=== PATIENT | male | born 1980 | race Asian ===

== ENCOUNTER 2025-03-16 21:05 | Emergency (ER) | payer BC, SELFPAY ==
[2025-03-16 21:05] VITALS: BP 121/80; PULSE 95; RESP 17; TEMP 36.6; O2SAT 99; BMI 26.6
--- NOTE | 2025-03-16 22:00 | RAD_ITS ---
PROCEDURE: RAD/Hand Min 3 Views
[2025-03-16 22:30] LABS: Hematocrit 48.2 % (40-54); Hemoglobin 16.3 g/dL (13.0-16.5); Immature Granulocytes Count 0.050 X10^3/uL (0.0-0.0); Mean Corp Hgb Conc 33.8 g/dL (32-36); Mean Corpuscular Volume 83.8 fL (80-94); Mean Platelet Vol. 10.3 fl (6.2-12.0); NRBC Flagged by Analyzer 0 % (0-5); Platelet Count 296 K/mm3 (150-450); RBC Distribution Width CV 13.1 % (11.6-14.6); RBC Distribution Width SD 39.8 fl (35.1-43.9); Red Blood Count 5.75 M/mm3 (4.6-6.2); White Blood Count 8.1 K/mm3 (4.4-11.0)
[2025-03-16 23:07] LABS: Anion Gap 14 (5-15); BUN 16 mg/dL (4-19); BUN/Creat Ratio 16.2 RATIO (10-20); Calcium,Total 10.5 mg/dL (7.6-11.0); Carbon Dioxide 23.1 mmol/L (21.0-32.0); Chloride 102 mmol/L (98-108); Estimated Creatinine Clearance 79.68 ml/min (50-250); Glucose 125 mg/dL (70-99); Potassium 3.9 mmol/L (3.3-5.1)
--- NOTE | 2025-03-16 23:20 | EX.ED.UPPERE ---
HPI History of Present Illness Chief Complaint: Laceration Narrative Narrative: 44-year-old male who denies significant past medical history, [id number], states he was trying to file a fish at home. Although he is right-hand dominant and he was using his left hand to hold the knife. He states the knife slipped and cut off the tip of his right fourth digit. He is unsure of his last tetanus immunization. He states that the area bled profusely. He denies other injuries. Tetanus Immunization: Unknown PFSH PFSH Medical History no medical history Home Medications ?Medication ?Instructions ?Recorded ?Last Taken ?Type amoxicillin 875 mg-potassium 875 mg PO Q12H #20 TABLETS 03/16/25 Unknown Rx clavulanate 125 mg tablet oxycodone-acetaminophen 5 mg-325 1 tab PO Q6H PRN pain 3 days #12 03/16/25 Unknown Rx mg tablet (Percocet) tabs Allergy/AdvReac Type Severity Reaction Status Date / Time No Known Allergies Allergy Verified 03/16/25 21:06 Family History no significant family his Surgical History no surgical history Social History Smoking Status: Current every day smoker tobacco type: cigarettes ROS ROS ED ROS Narrative Review of systems positive for injury to tip of right fourth digit with knife. Unknown last tetanus immunization. Denies other injuries. Does not take any blood thinners. EXAM Physical Exam Narrative Exam Narrative: Afebrile. Vital signs noted. Nontoxic-appearing. Cardiovascular examination reveals a regular rate and rhythm. Lungs are clear to auscultation bilaterally. Focused examination of the fourth fingertip does show complete avulsion laceration through at least three quarters of the nail on the lateral aspect of the right fourth digit. This is a complete avulsion laceration. He appears uninjured at the DIP joint and more proximally. Const Vital Signs: 03/16/25 21:05 Temperature 97.9 F Temperature Source Oral Pulse Rate 95 Respiratory Rate 17 Blood Pressure 121/80 H Blood Pressure Mean 93 Pulse Ox 99 Oxygen Delivery Method Room Air MDM MDM MDM Narrative Medical decision making narrative: I do not feel differential diagnosis is applicable here. However, there is concern for avulsion of the bone/tuft fracture. RN from triage placed a finger tourniquet. X-rays were obtained of the right fourth digit and interpreted by myself independently. There is concern for tuft fracture. I reviewed the radiology report which confirms my independent interpretation. Normal saline IV was placed and laboratory work drawn in the event that he would have needed transfer. WBC count normal at 8.1 with hemoglobin normal at 16.3, platelet count normal at 296. BMP grossly unremarkable except for glucose 125 with a normal anion gap of 14. Given his open tuft fracture, Ancef 1 g was started intravenously. He was also administered morphine for pain. His turnicot was cut off prior to the 90-minute toño, and direct pressure applied. I did discuss the patient with Dr. Mauricio Wilkinson with orthopedics. Patient is to be discharged with a Vaseline gauze dressing after hemostasis achieved with direct pressure. He was written a prescription for Augmentin 875 mg to take twice a day for the next 10 days and a 3-day prescription for Percocet. I stressed the importance of follow-up with orthopedics, Dr. Wilkinson. Return instructions to the emergency department were reviewed. Disposition is discharged in stable condition. History & Record Review Discussion w/independent historian: Patient Additional record(s) reviewed:: No prior records (No prior ED visit) Lab Data Attestation: I reviewed the patient's lab results. Labs: Laboratory Results - last 24 hr 03/16/25 22:11 WBC 8.1 RBC 5.75 Hgb 16.3 Hct 48.2 MCV 83.8 MCH 28.3 MCHC 33.8 RDW Std Deviation 39.8 RDW Coeff of Emily 13.1 Plt Count 296 MPV 10.3 Immature Gran % (Auto) 0.600 Neut % (Auto) 46.6 L Lymph % (Auto) 34.5 [place] % (Auto) 10.7 H Eos % (Auto) 6.5 H Baso % (Auto) 1.1 H Absolute Neuts (auto) 3.8 Absolute Lymphs (auto) 2.80 Nucleated RBC % 0 Sodium 139 Potassium 3.9 Chloride 102 Carbon Dioxide 23.1 Anion Gap 14 BUN 16 Creatinine 0.97 Estim Creat Clear Calc 79.68 Est GFR (MDRD) Non-Af 97 BUN/Creatinine Ratio 16.2 Glucose 125 H Calcium 10.5 Radiography X-Ray: Read by ED Physician, Read by Radiologist and Fracture Diagnostic Testing: Clinical Impression(s) from Imaging Studies Hand X-Ray 03/16/25 22:00 IMPRESSION: Osseous findings and laceration as above. Reading Location: [facility] Management Discussion w/another healthcare provider: Gas Line Installer Supervisor (Dr. Wilkinson, orthopedics) Discharge Plan Triage Chief Complaint: Laceration ED Provider: [place] Dx/Rx/DC Orders Clinical Impression: Open fracture of tuft of distal phalanx of finger, Traumatic amputation of finger tip Instructions: Finger Tip Amputation Open Tx, ED Fracture, Finger, Open Prescriptions: New oxycodone-acetaminophen [Percocet] 5-325 mg tablet 1 tab PO Q6H PRN (Reason: pain) 3 Days Qty: 12 0RF amoxicillin-pot clavulanate 875-125 mg tablet 875 mg PO Q12H Qty: 20 0RF Primary Care Provider: Care Physician,No Primary Referrals: Mauricio Wilkinson DO [Med Staff - Active Staff, Orthopedics] - 2 Days for wound check Care Physician,No Primary [Primary Care Provider, Medical] Activity Restrictions/Additional Instructions: Follow-up with orthopedics within the next few days for a wound check. Return to the emergency department with increased bleeding, new or worsening symptoms including fever. Print Language: Thai Disposition Disposition: Home, Self Care
[2025-03-16 23:31] VITALS: BP 136/78; PULSE 60; RESP 16; O2SAT 98
[2025-03-16] MEDS: Cefazolin 1 GM/50 ML BAG IV (23:35)
[2025-03-17] VITALS: BP 130/60; PULSE 60; RESP 16; TEMP 36.6; O2SAT 98
== END 2025-03-17 00:51 | disposition home or self-care (01) ==
PROVIDERS: Emergency Provider Emergency Medicine; Visit Provider Emergency Medicine
DX: S68.124A Partial traumatic metacarpophalangeal amputation of right ring finger, initial encounter (principal); W26.0XXA Contact with knife, initial encounter; Y93.89 Activity, other specified; Y92.009 Unspecified place in unspecified non-institutional (private) residence as the place of occurrence of the external cause; F17.210 Nicotine dependence, cigarettes, uncomplicated
CPT/HCPCS: 73130; 80048; 85025; 90715; 96365; 96375; 96376; 99285; A4216

== ENCOUNTER 2025-03-19 11:02 | Day surgery (SDC) | payer BC, SELFPAY ==
[2025-03-19] VITALS (9 sets, daily range): BP systolic 104–126; BP diastolic 72–90; PULSE 72–78; RESP 16; TEMP 36.1–36.9; O2SAT 94–98; BMI 25.3
[2025-03-19] MEDS: Lactated Ringers 1,000 ML 15 ML IV (12:12)
--- NOTE | 2025-03-19 12:32 | PCM.PRE.AN2 ---
ASA Classification* ASA Classification ASA Classification: 2 Assessment & Plan Anesthesia* Anesthesia Assessment Anesthesia Assessment: Discussed sedation and/or anesthesia options, risks, benefits, and alternatives with patient/parents/legal guardian/POA. Questions invited. The patient/parents/legal guardian/POA seems to understand and agrees to proceed with anesthesia plan. Reviewed the physical assessment, medical history, allergy history and patient home medications list prior to surgery/procedure/anesthetic and documented any changes. Performed airway and anesthesia risk assessments. Anesthesia Type Anesthesia Type: MAC History Source History Obtained from:: Patient and Chart Anesthesia Focused Assessment* Temperature: 98.5 F Pulse Rate: 72 Blood Pressure: 122/83 Respiratory Rate: 16 Pulse Ox: 98 Oxygen Delivery Method: Room Air Airway Assessment Mouth opens: >3 cm Mallampati Score: IV Teeth Condition: Intact Neck Range of motion (ROM): Full ROM Labs Anesthesia Preop lab: CBC WBC, (4.4-11.0) 8.1 K/mm3 03/16/25, :11 RBC, (4.6-6.2) 5.75 M/mm3 03/16/25, :11 Hgb, (13.0-16.5) 16.3 g/dL 03/16/25, :11 Hct, (40-54) 48.2 % 03/16/25, 22:11 Plt Count, (150-450) 296 K/mm3 03/16/25, 22:11 CHEMISTRY Potassium, (3.3-5.1) 3.9 mmol/L 03/16/25, :11 Sodium, (133-145) 139 mmol/L 03/16/25, 22:11 BUN, (4-19) 16 mg/dL 03/16/25, :11 Creatinine, (0.70-1.20) 0.97 mg/dL 03/16/25, :11 Glucose, (70-99) 125 mg/dL H 03/16/25, 22:11 COAG Pre-Assessment Diagnosis/Proposed Procedure Planned Operative Procedure(s): right ring finger revision amputation Anesthesia History Anesthesia History - pairer inspector: Anesthesia History - pairer inspector Hx Hospitalization No 03/18/25 09:00 Any Problems With Anesthesia No 03/18/25 09:00 Cholinesterase deficiency No 03/18/25 09:00 You/Your Family Experience No 03/18/25 09:00 fever (hyperthermia) with Relationship Recent Exposure to Contagious No 03/19/25 12:13 Disease Does patient have nerve No 03/18/25 09:00 stimulator Patient instructed to have device shut off --Does patient have Pacemaker No 03/19/25 12:13 or ICD? When Was Last Pacemaker Check QUESTION #4 FULL TEXT: You/Your Family Experience fever (hyperthermia) with Anesthesia Last Oral Intake Last Oral intake: Last Oral Intake NPO since 00:00 03/19/25 12:13 Meds taken in AM with sips of No 03/19/25 12:13 water? Meds patient instructed to take am of surgery PONV PONV - pairer inspector: PONV - pairer inspector Female Yes 03/18/25 09:00 HX of Motion Sickness No 03/18/25 09:00 HX of N/V After Surgery No 03/18/25 09:00 Non-Smoker No 03/18/25 09:00 Duration of Surgery greater No 03/18/25 09:00 than 60 minutes Number of Risk Factors 1 03/18/25 09:00 PONV Score Low Risk 03/18/25 09:00 Height & Weight Height & Weight: Anesthesia: Height & Weight Height 5 ft 4 in 03/19/25 12:13 Weight: 67 kg 03/19/25 12:13 Body Mass Index (BMI) 25.3 03/19/25 12:13 Respiratory Assessment Respiratory Assessment - pairer inspector: Respiratory Tract Infection Hx - pairer inspector Hx Respiratory Tract Infection No 03/18/25 09:00 STOP Sleep Apnea STOP Sleep Apnea - pairer inspector: STOP Sleep Apnea - pairer inspector Hx Hypertension No 03/18/25 09:00 Hx Sleep Apnea No 03/18/25 09:00 CPAP BIPAP Do you snore loudly (louder No 03/18/25 09:00 than talking or can be heard Do you often feel tired/ No 03/18/25 09:00 fatigued/ sleepy during daytime? Has anyone observed you stop No 03/18/25 09:00 breathing during sleep? STOP Results Negative 03/18/25 09:00 QUESTION #5 FULL TEXT : Do you snore loudly (louder than talking or can be heard through closed doors)? 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 Specify any problems Hx of Preganancy in last 3 N/A 03/18/25 09:00 Months Nurse Filling Out Transfusion NBUCHER 03/18/25 09:00 & Questions: Date: 03/18/25 03/18/25 09:00 Time: 09:01 03/18/25 09:00 Patient unable to answer at this time (ie. confused, unrespo /Reproduction History /Reproductive History - pairer inspector: /Reproductive Hx- pairer inspector Hx Now No 03/18/25 09:00 Gestational Age (in weeks): EDC: Hx Hx Para Hx Section SAB No 03/18/25 09:00 Active Medications Active Medications: Current Medications Generic Name Dose Route Start Last Admin Trade Name Freq PRN Reason Stop Dose Admin Cefazolin Sodium 2 gm/ Sodium 110 mls @ 200 mls/hr 03/19/25 13:25 Chloride IV 03/19/25 13:57 INTRAOP ONE Lactated Ringer's 1,000 mls @ 15 mls/hr 03/19/25 11:30 03/19/25 12:12 IV 15 mls/hr .Q48H MURALI Administration PFSH Medical History Malaria Anemia Smoker Home Medications ?Medication ?Instructions ?Recorded ?Last Taken ?Type amoxicillin 875 mg-potassium 875 mg PO Q12H #20 TABLETS 03/16/25 03/18/25 Rx clavulanate 125 mg tablet oxycodone-acetaminophen 5 mg-325 1 tab PO Q6H PRN pain 3 days #12 10/27/25 10/29/25 Rx mg tablet (Percocet) tabs Allergy/AdvReac Type Severity Reaction Status Date / Time No Known Allergies Allergy Verified 03/19/25 12:12 no surgical history Social History Smoking Status: Current every day smoker tobacco type: cigarettes Review of Systems (Anesthesia) ROS Narrative System reviewed and no additional complaints, except as documented.
[2025-03-19] MEDS: Lactated Ringers 500 ML IV (13:47)
[2025-03-19] MEDS: Midazolam 2 MG/2 ML Syringe IV (13:47)
[2025-03-19] MEDS: Cefazolin 1 GM/5 ML Vial 2 GM IV (13:47)
[2025-03-19] MEDS: Lidocaine 1% (5 ml sdv) 5 ML Vial 6 ML IV (13:50)
[2025-03-19] MEDS: Lidocaine 1% /Epi 1:100 (20ml) 20 ML Vial (14:15)
--- NOTE | 2025-03-19 14:32 | PCM.POST.ANE ---
Anesthesia: Postop Eval I Current Vital Signs Temperature: 97.5 F Pulse Rate: 77 Blood Pressure: 108/73 Respiratory Rate: 16 Pulse Ox: 94 Oxygen Delivery Method: Room Air Assessment Airway patent: Yes Spontaneous unlabored respirations: Yes Mental status: Awake and Calm nausea: No Vomiting: No Anesthesia Complication: No Fluid Hydration Crystalloid volume administer (ml): 500 Total IV fluid infused: 500 Progress Note Anesthesia document: Postop Eval 1 completed: Yes
--- NOTE | 2025-03-19 14:32 | POSTOP.ANE_ITS ---
Anesthesia: Postop Eval I
--- NOTE | 2025-03-19 15:33 | OP.PCM_ITS ---
Operative Report (Standard)
--- NOTE | 2025-03-19 15:33 | PCM.OPRPT ---
Operative Report (Standard) Operative Information Date of Procedure: 03/19/25 Pre-Operative Diagnosis: Traumatic amputation right ring finger distal phalanx level Post-Operative Diagnosis: Traumatic amputation right ring finger distal phalanx level Surgery/Procedure Performed: Revision right ring finger amputation with advancement of volar flap daycare assistant: No Type of Anesthesia: MAC RN Documented Start/Stop Times: Operation Date: 03/19/25 13:30 Case Time Into Pre-Op 03/19/25 11:27 Anesthesia Start 03/19/25 13:45 Into Room 03/19/25 13:45 Out of Pre-Op 03/19/25 13:50 Procedure Start 03/19/25 14:04 Procedure End 03/19/25 14:25 Anesthesia End 03/19/25 14:29 Out of Room 03/19/25 14:29 Into Recovery 03/19/25 14:31 Out of Recovery 03/19/25 15:13 Into Phase II Recovery 03/19/25 15:14 Procedure Start Time: 14:04 Procedure Stop Time: 14:25 Select all DRAINS/GRAFTS/IMPLANTS that apply: None Estimated Blood Loss: 10 cc Specimen collected: No Description of surgery: Patient was identified in the preoperative holding area by name, medical record number, and date of . The operative extremity was marked. All questions were answered to the patient's satisfaction. At time of his procedure, patient was brought to the operative suite positioned supine on a standard operating table. MAC anesthesia was achieved. I then administered a digital block with 10 cc 1% lidocaine with epinephrine 1: 100,000. Right hand and wrist were then prepped and draped in normal, sterile orthopedic fashion with Betadine. A timeout was called confirming side, site, and operation to be performed. No concerns were voiced and elected to proceed with surgery. 2 g Ancef was administered IV prior to incision by anesthesia staff. I then confirmed anesthesia. I applied a turnicot for approximately 10 minutes. Exposed bone was then palpated along the ulnar nailbed. There is nail plate remaining which was elevated with a [place] and removed. I trimmed the nail bed to allow for a symmetrical resection. I shorten the distal phalanx with a rongeur approximately 4 mm. Volar flap was debrided of devitalized tissue and elevated from the distal phalanx to allow for flap coverage of the dorsal cortex. Wound was copiously irrigated with saline solution. [place] incision was made along the edges to reduce dogears. Turnicot was removed and hemostasis was achieved with bipolar cautery. Flap was then mobilized and secured to the dorsal skin and nailbed respectively with interrupted simple 5-0 Prolene suture. Bulky sterile compression dressing was applied. Patient was awakened from anesthesia and transferred to his gurney and subsequently to PACU in stable condition. He tolerated the procedure well without apparent complication. Postoperative plan: Nonweightbearing to the operative digit. Ice and elevation encouraged. Multimodal pain management with Tylenol and ibuprofen as well as oxycodone as prescribed. Complete 10-day course of Augmentin as prescribed by emergency department. Follow-up in 2 weeks for wound check and likely suture removal. Remove dressing postoperatively #3 okay to shower but no tub soaks. Surgical Findings: Traumatic amputation right ring finger distal phalanx level with near complete loss of nailbed. Palmar flap raised with good coverage. Complications Complications: No Admit VTE Documentation VTE Present on Admission: No VTE Mechan Device Prophylaxis: None VTE Pharm Prophylaxis ordered?: No Reason prophylaxis not ordered: Treatment Not Indicated
--- NOTE | 2025-03-19 19:59 | POSTOPAN2_ITS ---
Anesthesia Postop Eval I Sum
--- NOTE | 2025-03-19 19:59 | PCM.POSTANE2 ---
Anesthesia Postop Eval I Sum Postop Eval Completion status Anesthesia document: Postop Eval 1 completed: Yes Anesthesia Postop Eval I Summary Anesthesia Postop Eval I Summary: Anesthesia Postop Eval I: Assessment Summary Airway patent Yes 03/19/25 19:59 Spontaneous unlabored Yes 03/19/25 19:59 respirations Mental status Awake,Calm 03/19/25 19:59 nausea No 03/19/25 19:59 Vomiting No 03/19/25 19:59 Anesthesia Postop Eval I: Fluid Summary Crystalloid volume administer 500 03/19/25 19:59 (ml) Colloids volume administered ( ml) Blood Product volume administered (ml) Total IV fluid infused 500 03/19/25 19:59 Anesthesia Postop Eval I: Summary Notes Anesthesia Complication No 03/19/25 19:59 Anesthesia Complication Comment: Post-operative progress note Anesthesia: Postop Eval II Evaluation Mental status: Awake and Calm Pain Level: 0 nausea: No Vomiting: No Complications Anesthesia Complication: No
== END 2025-03-19 15:53 | disposition home or self-care (01) ==
LOC: SDC 11:03 → AC 11:05
PROVIDERS: Referring Provider Student in an Organized Health Care Education/Training Program; Visit Provider Student in an Organized Health Care Education/Training Program
PROC: (CPT 26952; principal; 2025-03-19 13:15)
DX: S68.614A Complete traumatic transphalangeal amputation of right ring finger, initial encounter (principal); W26.0XXA Contact with knife, initial encounter; Y93.G1 Activity, food preparation and clean up; F17.210 Nicotine dependence, cigarettes, uncomplicated
CPT/HCPCS: 26952; 01830